=== PATIENT | male | born 1980 | race Caucasian/White ===

== ENCOUNTER 2016-08-27 06:59 | Emergency (ER) | payer OTHER ==
[~2016-08-27] VITALS: Ht 182.9 cm; Wt 72.0 kg
[~2016-08-27 06:59] MED LIST: 12 HOUR DECONG120 M1 PO; AFRIN15 ML BOTH NARES; AMBIEN5 M1 PO; AMOX TR-K CLV1 EAC4; CHERATUSSIN AC473 ML PO; DEXTROAMP-AMPHE15 MG PO; ENDOCET 10-3251 EACH PO; ENDOCET 7.5-321 EACH PO; EXCEDRIN EXTRA1 EACH PO; KLONOPIN0.5 M1 PO; MUCINEX600 MG PO; PHENERGAN-CODE120 ML PO; PREDNISONE10 M1 PO; VALIUM10 MG PO; VICOPROFEN1 TABLET PO; ZITHROMAX Z-PA250 MG PO
[2016-08-27] MEDS ORDERED: FLEXERIL5 MG PO (07:27)
[2016-08-27] MEDS ORDERED: PERCOCET 5/31 TABLET PO (07:29)
[2016-08-27] MEDS ORDERED: OXYCODONE HCL5 MG PO (07:41)
[2016-08-27 07:55] VITALS: BP 96/63
== END 2016-08-27 07:56 | disposition home or self-care (01) ==
LOC: EME 06:59
DX: S00.03XA Contusion of scalp, initial encounter (principal); S00.01XA Abrasion of scalp, initial encounter; Y00.XXXA Assault by blunt object, initial encounter; Z87.442 Personal history of urinary calculi; Z87.891 Personal history of nicotine dependence
CPT/HCPCS: 99281; 99284

== ENCOUNTER 2017-10-19 13:26 | Emergency (ER) | payer OTHER ==
[~2017-10-19] VITALS: Ht 180.3 cm; Wt 63.3 kg
[~2017-10-19 13:26] MED LIST changes: +FLEXERIL5 MG PO; +OXYCODONE HCL5 MG PO; +PERCOCET 5/31 TABLET PO
[2017-10-19 14:09] LABS: HEMATOCRIT 45.3 % (38.0-50.0); HEMOGLOBIN 16.1 G/DL (12.5-16.6); MCH 31.8 PG (29.0-34.0); MCHC 35.5 G/DL (30.0-36.0); MCV 89.3 FL (86-99); RBC DIS.WIDTH-CV 12.6 % (11.8-14.6); RBC DIS.WIDTH-SD 41.2 % (39-53); RED BLOOD COUNT 5.07 M/uL (4.00-5.50); WHITE BLOOD COUNT 15.7 K/uL (4.1-10.2)
[2017-10-19 14:42] LABS: CHLORIDE 101 MEQ/L (99-109); POTASSIUM 4.4 MEQ/L (3.7-5.4); SODIUM 138 MEQ/L (136-147)
[2017-10-19 14:47] LABS: GFR ESTIMATE (CALCULATED) > 59 mL/min/ (58.99-99999); GLUCOSE 87 mg/dL (70-99); UREA NITROGEN (BUN) 17 mg/dL (9-23)
[2017-10-19 14:56] LABS: PLAT.SUFFICIENCY ADEQUATE; PLATELET COUNT 211 K/uL (156-360)
[2017-10-19 15:12] LABS: TROP-I INTERPRETATION NEGATIVE; TROPONIN-I < 0.01 ng/mL (0.0-0.30)
[2017-10-19] MEDS ORDERED: ROXICODONE5 MG PO (16:23)
[2017-10-19] MEDS ORDERED: ZOFRAN ODT4 MG PO (16:23)
[2017-10-19 17:17] VITALS: BP 93/54
== END 2017-10-19 17:18 | disposition home or self-care (01) ==
LOC: EME 13:26
PROVIDERS: Emergency Medicine
PROC: 0JQ10ZZ Repair Face Subcutaneous Tissue and Fascia, Open Approach (ICD-10-PCS; principal; 2017-10-19)
DX: S02.611A Fracture of condylar process of right mandible, initial encounter for closed fracture (principal); S01.81XA Laceration without foreign body of other part of head, initial encounter; S00.511A Abrasion of lip, initial encounter; S01.532A Puncture wound without foreign body of oral cavity, initial encounter; W18.30XA Fall on same level, unspecified, initial encounter; Y93.01 Activity, walking, marching and hiking; E86.0 Dehydration; R55 Syncope and collapse; G89.29 Other chronic pain; M54.5 Low back pain; F17.200 Nicotine dependence, unspecified, uncomplicated; Z95.9 Presence of cardiac and vascular implant and graft, unspecified; Z87.442 Personal history of urinary calculi; Z88.6 Allergy status to analgesic agent
CPT/HCPCS: 70110; 70450; 71046; 80048; 84484; 85027; 93005; 99281; 99285; J1885; J2405; J3010; J7030